=== PATIENT | male | born 2000 | race Caucasian/White ===

== ENCOUNTER 2023-07-09 20:06 | Emergency (ER) | payer SELFPAY ==
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
--- NOTE | ~2023-07-09 | XR_ITS ---
EXAMINATION: XR FEMUR, RIGHT CLINICAL INFORMATION: Rule out fracture. COMPARISON: None available. TECHNIQUE: 5 radiographs of the right femur were obtained. FINDINGS: The right femur is intact. There is no fracture. The right knee joint appears maintained as does the right hip joint. XR/XR femur RT 2V IMPRESSION: No fracture or dislocation.
[2023-07-09 20:12] VITALS: BP 150/111; PULSE 99; RESP 17; TEMP 36.8; O2SAT 98
[2023-07-09 20:13] VITALS: BP 150/111; PULSE 92; RESP 17; TEMP 36.8; O2SAT 97; BMI 42.6
[2023-07-09 20:19] LABS: MANUAL DIFF FLAG NO
[2023-07-09 20:23] LABS: Basophils Percent Auto 0.4 % (0-2); Eosinophils Absolute Auto 0.1 X10*3/uL (0.0-0.4); Eosinophils Percent Auto 1.2 % (0-4); Hematocrit 46.6 % (42.0-52.0); Hemoglobin 15.6 g/dl (14.0-18.0); Imm Gran Abs Auto 0.04 X10*3/uL (0.00-0.03); Imm Gran Pct Auto 0.4 % (0.0-0.4); Lymphocytes Absolute Auto 2.3 X10*3/uL (1.2-4.9); Lymphocytes Percent Auto 22.7 % (20-40); Mean Corpuscular HGB Conc 33.5 g/dl (31.0-36.0); Mean Corpuscular Hemoglobin 28.7 pg (27.0-33.0); Mean Corpuscular Volume 85.8 fL (80.0-98.0); Mean Platelet Volume 12.2 fL (9.4-12.4); Monocytes Percent Auto 9.6 % (2-11); Neutrophils Absolute Auto 6.7 x10*3/uL (2.0-8.3); Neutrophils Percent Auto 65.7 % (45-73); Platelet Count 239 X10*3/uL (160-400); Red Blood Count 5.43 X10*6/uL (4.60-5.80); Red Cell Distribution Width 12.6 % (11.0-16.0); White Blood Count 10.1 X10*3/uL (4.8-10.8)
[2023-07-09 20:32] LABS: Prothrombin Time 12.3 SEC (11.1-13.3)
[2023-07-09] MEDS: ceFAZolin Sodium/Dextrose,Iso 2 GM/50 ML PIGGYBACK IV (20:33)
[2023-07-09] MEDS: Morphine Sulfate 4 MG/ML CARTRIDGE IVPUSH (20:34)
--- NOTE | 2023-07-09 20:34 | PC.NURSE ---
Pt medicated per MAR with 2gm Ancef and 4mg IVP mophine.
[2023-07-09 20:35] LABS: Partial Thromboplastin Time 32.1 SEC (26.0-36.8)
[2023-07-09 20:38] LABS: Albumin Level 5.1 g/dL (3.5-5.0); Alkaline Phosphatase 82 U/L (39-117); Anion Gap 20 (12-20); Aspartate Amino Transferase 25 U/L (5-37); Bilirubin Total 0.7 mg/dL (0.0-1.0); Blood Urea Nitrogen 14 mg/dL (9-16); Calcium 10.2 mg/dL (8.4-10.2); Carbon Dioxide 22 mmol/L (22-29); Chloride 106 mmol/L (96-108); Creatinine Clr Calc Pharmacy 123.3; Estimated Glomerular Filt Rate > 60; Ethanol 23 mg/dL; Glucose Random 75 mg/dL (60-115); Potassium 3.3 mmol/L (3.3-5.1); Sodium 145 mmol/L (135-145); Total Protein 8.3 g/dL (6.5-8.0)
[2023-07-09] MEDS: ondansetron HCL 4 MG/2 ML VIAL IVPUSH (20:41)
--- NOTE | 2023-07-09 20:41 | PC.NURSE ---
Pt medicated with 4mg Zofran IVP for nausea after morphine administration.
--- NOTE | 2023-07-09 20:46 | PC.NURSE ---
Pt to CT at this time.
[2023-07-09 20:49] LABS: Alanine Aminotransferase 52 U/L (0-40)
[2023-07-09 21:10] VITALS: BP 159/91; PULSE 97; RESP 16; O2SAT 98
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
[2023-07-09] MEDS: oxyCODONE HCl Immed Release 5 MG TABLET PO (21:33)
[2023-07-09] MEDS: Ibuprofen 400 MG TABLET PO (21:33)
[2023-07-09] MEDS: Bacitracin Oint 0.9 GM PACKET 1 APPL TOPICAL (22:20)
[2023-07-09 22:50] VITALS: BP 137/93; PULSE 83; RESP 16; TEMP 36.8; O2SAT 98
== END 2023-07-09 22:55 | disposition home or self-care (01) ==
PROVIDERS: Emergency Provider Emergency Medicine Emergency Medical Services
DX: S71.131A Puncture wound without foreign body, right thigh, initial encounter (principal); W32.0XXA Accidental handgun discharge, initial encounter; Y93.9 Activity, unspecified; Y92.810 Car as the place of occurrence of the external cause; Y99.9 Unspecified external cause status
CPT/HCPCS: 36415; 73552; 73700; 80053; 80307; 82550; 85025; 85610; 85730; 96365; 96375; 99285; J0690; J2270; J2405

== ENCOUNTER 2023-07-15 12:49 | Emergency (ER) | payer SELFPAY ==
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
[2023-07-15 13:10] VITALS: BP 130/86; PULSE 97; RESP 20; TEMP 36.2; O2SAT 96; BMI 39.8
[2023-07-15 13:34] LABS: MANUAL DIFF FLAG NO
[2023-07-15 13:37] LABS: Basophils Absolute Auto 0.1 X10*3/uL (0.0-0.2); Basophils Percent Auto 0.6 % (0-2); Eosinophils Absolute Auto 0.1 X10*3/uL (0.0-0.4); Eosinophils Percent Auto 1.6 % (0-4); Hematocrit 42.4 % (42.0-52.0); Hemoglobin 14.3 g/dl (14.0-18.0); Imm Gran Abs Auto 0.06 X10*3/uL (0.00-0.03); Imm Gran Pct Auto 0.7 % (0.0-0.4); Lymphocytes Absolute Auto 1.6 X10*3/uL (1.2-4.9); Lymphocytes Percent Auto 19.4 % (20-40); Mean Corpuscular HGB Conc 33.7 g/dl (31.0-36.0); Mean Corpuscular Hemoglobin 28.8 pg (27.0-33.0); Mean Corpuscular Volume 85.3 fL (80.0-98.0); Mean Platelet Volume 12.4 fL (9.4-12.4); Monocytes Absolute Auto 0.8 X10*3/uL (0.1-1.2); Monocytes Percent Auto 9.5 % (2-11); Neutrophils Absolute Auto 5.6 x10*3/uL (2.0-8.3); Neutrophils Percent Auto 68.2 % (45-73); Platelet Count 226 X10*3/uL (160-400); Red Blood Count 4.97 X10*6/uL (4.60-5.80); Red Cell Distribution Width 12.5 % (11.0-16.0); White Blood Count 8.2 X10*3/uL (4.8-10.8)
[2023-07-15 13:41] LABS: INTERNATIONAL NORM RATIO 0.9 (0.9-1.1); Prothrombin Time 11.3 SEC (11.1-13.3)
[2023-07-15 13:48] LABS: Alanine Aminotransferase 40 U/L (0-40); Albumin Level 4.5 g/dL (3.5-5.0); Alkaline Phosphatase 84 U/L (39-117); Anion Gap 12 (12-20); Aspartate Amino Transferase 18 U/L (5-37); Bilirubin Total 0.6 mg/dL (0.0-1.0); Blood Urea Nitrogen 12 mg/dL (9-16); Calcium 9.9 mg/dL (8.4-10.2); Carbon Dioxide 25 mmol/L (22-29); Chloride 109 mmol/L (96-108); Creatinine Clr Calc Pharmacy 152.9; Estimated Glomerular Filt Rate > 60; Glucose Random 92 mg/dL (60-115); Magnesium 1.8 mg/dL (1.6-2.6); Potassium 4.2 mmol/L (3.3-5.1); Sodium 142 mmol/L (135-145); Total Protein 7.5 g/dL (6.5-8.0)
[2023-07-15 16:03] VITALS: BP 129/93; PULSE 73; RESP 17; TEMP 36.7; O2SAT 97
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
[2023-07-15 18:54] VITALS: BP 118/69; PULSE 77; RESP 17; TEMP 36.8; O2SAT 95
[2023-07-15] MEDS: Bacitracin Oint 0.9 GM PACKET 1 APPL TOPICAL (19:29)
[2023-07-15 19:39] VITALS: BP 138/95; PULSE 94; RESP 16; TEMP 36.8; O2SAT 96
== END 2023-07-15 19:39 | disposition home or self-care (01) ==
PROVIDERS: Physician Assistant Medical; Emergency Provider Emergency Medicine
DX: R60.0 Localized edema (principal); Z48.00 Encounter for change or removal of nonsurgical wound dressing; Z79.899 Other long term (current) drug therapy
CPT/HCPCS: 36415; 80053; 83735; 85025; 85610; 93971; 99284